=== PATIENT | male | born 2000 | race Caucasian/White ===

== ENCOUNTER 2023-03-21 01:12 | Emergency (ER) | payer OTHER, BC, SELFPAY ==
[2023-03-21 01:16] VITALS: BP 150/88; PULSE 110; O2SAT 99
[2023-03-21 01:23] VITALS: BP 120/73; PULSE 103; RESP 15; TEMP 36.8; O2SAT 98; BMI 25.1
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
== END 2023-03-21 02:09 | disposition home or self-care (01) ==
PROVIDERS: Emergency Provider Internal Medicine
DX: Z04.1 Encounter for examination and observation following transport accident (principal); M54.2 Cervicalgia
CPT/HCPCS: 99282; 99284